=== PATIENT | female | born 2000 | race Caucasian/White ===

== ENCOUNTER 2019-01-18 17:47 | Emergency (ER) | payer OTHER ==
--- NOTE | 2019-01-18 19:08 | EDM.PDOC ---
ED HPI GENERAL MEDICAL PROBLEM - General Chief Complaint: Genitourinary Problem Stated Complaint: FELL OFF CHAIR CUT HER VAGINA Time Seen by Provider: 01/18/19 18:30 Source of Information: Reports: Patient History Limitations: Reports: No Limitations - History of Present Illness INITIAL COMMENTS - FREE TEXT/NARRATIVE: Emilee is a 18 year old female who presents to the ED today with complaints of vaginal injury/trauma that occurred last evening around 2100. Patient was standing on a chair putting things in a high cupboard and slipped, landing on upper portion of chair in between her legs. Patient reports that injury occurred to right labia region, it bled significantly last night, traces of blood today. No pain with urination, able to ambulate, mild pain with sitting, has not soaked area or taken anything for pain. Patient denies any other injuries. Duration: Day(s): (1) Perineal Area Pain Score (Numeric/FACES): 3 - Related Data Allergies Allergy/AdvReac Type Severity Reaction Status Date / Time No Known Allergies Allergy Verified 01/18/19 18:33 Home Meds: Home Meds NK [No Known Home Meds] 01/18/19 [History] Past Medical History Musculoskeletal History: Reports: Fracture Social & Family History - Tobacco Use Smoking Status *Q: Never Smoker - Caffeine Use Caffeine Use: Reports: None - Recreational Drug Use Recreational Drug Use: No ED ROS GENERAL - Review of Systems Review Of Systems: ROS reveals no pertinent complaints other than HPI. ED EXAM, SKIN/RASH Exam: See Below Exam Limited By: No Limitations General Appearance: Alert, WD/WN, No Apparent Distress Head: Atraumatic Respiratory/Chest: No Respiratory Distress Cardiovascular: Regular Rate, Rhythm GI/Abdominal: Normal Bowel Sounds, Soft, Non-Tender (Female) Exam: Other (vaginal abrasions, superficial lacerations to outer right labia, upper portion, approx 1 cm in length for one, 0.5 cm in length for number two, no current bleeding, no indication for suture repair) Extremities: Normal Inspection Neurological: Alert, Oriented Psychiatric: Normal Affect, Normal Mood Skin: Warm, Dry Lymphatic: No Adenopathy Course - Vital Signs Last Recorded V/S: Last Vital Signs Temp 36.3 C 01/18/19 18:30 Pulse 81 01/18/19 18:30 Resp 19 01/18/19 18:30 BP 110/65 01/18/19 18:30 Pulse Ox 98 01/18/19 18:30 Emilee is a 18 year old otherwise healthy female who presents to the ED today after sustaining an injury to right labia yesterday evening, please refer to HPI and focused exam. Exam reveals abrasions/superficial laceration to right upper out labial region, no suturing warranted, remaining exam is reassuring and unremarkable. Patient instructed to soak in plain warm water twice daily for 3 days, apply bacitracin twice daily for 3 days, Desitin as needed for barrier if urination is painful. Ibuprofen/Tylenol encouraged as well. Reasons to return to the ED discussed. Patient agreeable to plan of care and discharged in stable condition. Departure - Departure Time of Disposition: 19:25 Disposition: Home, Self-Care 01 Condition: Good Clinical Impression: Laceration of labial mucosa without complication Qualifiers: Encounter type: initial encounter Qualified Code(s): S01.512A - Laceration without foreign body of oral cavity, initial encounter - Discharge Information Instructions: Laceration Care, Adult Referrals: PCP,None [Primary Care Provider] - Forms: ED Department Discharge Additional Instructions: Warm plain water soaks twice daily for 3 days Apply bacitracin twice daily for 3 days Desitin as needed if urination bothers you Ibuprofen 600 mg every 6 hours for pain Return with any complications
== END 2019-01-18 19:17 | disposition home or self-care (01) ==
LOC: JP.ED 17:47
DX: S31.41XA Laceration without foreign body of vagina and vulva, initial encounter (principal); W07.XXXA Fall from chair, initial encounter
CPT/HCPCS: 99282